=== PATIENT | female | born 1950 | race Two or more races ===

== ENCOUNTER 2017-05-22 07:56 | Inpatient (IN) | payer MEDICAID, OTHER ==
[~2017-05-22] VITALS: Ht 157.5 cm; Wt 62.4 kg
[~2017-05-22 07:56] MED LIST: LEVO25TA9
[2017-05-22 08:37] LABS: Basophils # (auto) 0 uL; Basophils % (auto) 0.2 % (0.0-2.0); Eosinophils # (auto) 0 uL; Eosinophils % (auto) 0.2 % (0.0-7.0); Hematocrit 28.8 % (36.0-46.0); Hemoglobin 9.7 g/dL (12.2-16.2); Lymphocytes # (auto) 0.6 uL; Lymphocytes % (auto) 11.7 % (10.0-50.0); Mean Corpuscular Hemoglobin 28.2 pg (28.0-32.0); Mean Corpuscular Hgb Conc. 33.7 g/dL (32.0-36.0); Mean Corpuscular Volume 83.7 fL (80.0-100.0); Monocytes # (auto) 0.2 uL; Monocytes % (auto) 3.3 % (0.0-12.0); Neutrophils # (auto) 4.5 uL; Neutrophils % (auto) 84.6 % (37.0-80.0); Nucleated Red Blood Cells % 0.1 %; Platelet Count (auto) 91 10^3/uL (140-450); Red Cell Distribution Width 16.6 % (11.8-14.3); White Blood Cell 5.4 10^3/uL (4.4-10.8)
[2017-05-22 08:51] LABS: Albumin 2.4 g/dL (3.4-5.0); BUN/Creatinine Ratio 26.1; Bilirubin, Total 0.4 mg/dL (0.2-1.0); Calcium 7.8 mg/dL (8.5-10.1); Potassium 3.9 mmol/L (3.5-5.1); Total Protein 8.1 g/dL (6.4-8.2)
[2017-05-22] MEDS ORDERED: PANTOPRAZOLE 40 MG/10 ML VIAL IV STA (08:51)
[2017-05-22 10:06] LABS: INR 1.23 (0.9-1.15); Partial Thromboplastin Time 26.9 sec (22.64-33.71); Prothrombin Time 13.4 sec (9.37-12.3)
[2017-05-22] MEDS ORDERED: LEVOTHYROXINE SODIUM 25 MCG TAB PO ONE (10:15)
[2017-05-22] MEDS ORDERED: cefTRIAXone 1GM/50ML D5W 50 ML IV ONE (10:15)
[2017-05-22] MEDS ORDERED: ONDANSETRON HCL 4 MG/2 ML VIAL IV PRN (10:30)
[2017-05-22] MEDS ORDERED: ACETAMINOPHEN 325 MG TAB PO PRN (10:30)
[2017-05-22] MEDS ORDERED: TEMAZEPAM 15 MG CAP PO PRN (10:30)
[2017-05-22] MEDS ORDERED: NITROGLYCERIN 0.4 MG SL TAB SL PRN (10:30)
[2017-05-22] MEDS ORDERED: HYDROcodone-ACET 5/325MG TAB PO PRN (10:30)
[2017-05-22] MEDS ORDERED: MORPHINE SULFATE 10 MG/ML INJ 1ML SDV IV PRN (10:30)
[2017-05-22] MEDS ORDERED: DOCUSATE SOD 100 MG CAP PO PRN (10:30)
[2017-05-22] MEDS: SODIUM CHLORIDE 0.9% 1,000 ML IV SCH ×2 (10:58→19:45)
[2017-05-22] MEDS: FAMOTIDINE (10MG/ML) 2ML VL IV ONE ×2 (11:02→11:08)
[2017-05-22 11:36] LABS: Hematocrit 29.4 % (36.0-46.0); Hemoglobin 9.6 g/dL (12.2-16.2)
[2017-05-22] MEDS ORDERED: FLUMAZENIL 0.1 MG/ML INJ 10ML MDV IV ONE (11:44)
[2017-05-22] MEDS ORDERED: LIDOCAINE VISCOUS 2% 15ML UD ONE (11:44)
[2017-05-22] MEDS ORDERED: SODIUM CHLORIDE LOCK 10 ML ONE (11:44)
[2017-05-22] MEDS ORDERED: EPINEPHrine HCL 1 MG/10 ML SYRG ONE (11:44)
[2017-05-22] MEDS ORDERED: NALOXONE HCL 0.4 MG/ML VIAL ONE (11:44)
[2017-05-22] MEDS ORDERED: MIDAZOLAM HCL 5 MG/ML-1ML VIAL ONE ×2 (11:45→11:48)
[2017-05-22] MEDS ORDERED: diphenhdrAMINE HCL 50 MG/1 ML VL ONE (11:46)
[2017-05-22] MEDS ORDERED: fentaNYL CITRATE 100 MCG/2 ML VL ONE (11:46)
[2017-05-22] MEDS: Boost Glucose Control 8 Ounces PO SCH ×2 (12:00→19:07)
[2017-05-22] MEDS: metroNIDAZOLE 500MG/100ML 100 ML IV SCH ×2 (12:07→21:34)
[2017-05-22] MEDS ORDERED: OCTREOTIDE ACETATE 100 MCG in SODIUM CHL 0.9% 50 ML IV ONE (14:00)
[2017-05-22] MEDS: OCTREOTIDE ACETATE 500 MCG in SODIUM CHL 0.9% 99 ML IV SCH (15:17)
[2017-05-22 16:20] LABS: Urine Bilirubin Negative (Negative); Urine Blood Negative /uL (Negative); Urine Color Yellow (Yellow); Urine Glucose Normal (Normal); Urine Ketone Negative (Negative); Urine Mucus FEW (None Seen); Urine Nitrite Negative (Negative); Urine RBC <1 /hpf (0 - 4); Urine Urobilinogen Normal (Negative); Urine pH 7.5 (5.0-8.0)
[2017-05-22 18:41] LABS: Hematocrit 26.1 % (36.0-46.0); Hemoglobin 8.7 g/dL (12.2-16.2)
[2017-05-22 20:15] VITALS: BP 126/68
[2017-05-22 20:30] VITALS: BP 128/68
[2017-05-22] MEDS: PANTOPRAZOLE 40 MG/10 ML VIAL IV SCH (21:34)
[2017-05-22 22:29] LABS: Hematocrit 24.3 % (36.0-46.0)
[2017-05-23] MEDS: OCTREOTIDE ACETATE 500 MCG in SODIUM CHL 0.9% 99 ML IV SCH ×2 (00:03→10:00)
[2017-05-23] MEDS: SODIUM CHLORIDE 0.9% 1,000 ML IV SCH ×2 (04:02→11:17)
[2017-05-23] MEDS: metroNIDAZOLE 500MG/100ML 100 ML IV SCH ×2 (04:04→12:00)
[2017-05-23 05:08] VITALS: BP 143/75
[2017-05-23 06:55] LABS: Basophils # (auto) 0 uL; Basophils % (auto) 0.9 % (0.0-2.0); Eosinophils # (auto) 0.1 uL; Eosinophils % (auto) 1.3 % (0.0-7.0); Hematocrit 26.3 % (36.0-46.0); Hemoglobin 8.7 g/dL (12.2-16.2); Lymphocytes % (auto) 24.8 % (10.0-50.0); Mean Corpuscular Hemoglobin 28.2 pg (28.0-32.0); Mean Corpuscular Hgb Conc. 33.2 g/dL (32.0-36.0); Mean Corpuscular Volume 85.1 fL (80.0-100.0); Monocytes # (auto) 0.2 uL; Monocytes % (auto) 4.4 % (0.0-12.0); Neutrophils # (auto) 2.7 uL; Neutrophils % (auto) 68.6 % (37.0-80.0); Nucleated Red Blood Cells % 0.5 %; Platelet Count (auto) 77 10^3/uL (140-450); Red Cell Distribution Width 17.2 % (11.8-14.3); White Blood Cell 3.9 10^3/uL (4.4-10.8)
[2017-05-23] MEDS ORDERED: LEVOTHYROXINE SODIUM 25 MCG TAB PO SCH (07:00)
[2017-05-23] MEDS ORDERED: LEVOTHYROXINE SODIUM 50 MCG TAB PO SCH (07:00)
[2017-05-23 07:33] LABS: Albumin 2.3 g/dL (3.4-5.0); BUN/Creatinine Ratio 27.4; Bilirubin, Total 0.5 mg/dL (0.2-1.0); Calcium 7.6 mg/dL (8.5-10.1); Total Protein 7.7 g/dL (6.4-8.2)
[2017-05-23] MEDS: Boost Glucose Control 8 Ounces PO SCH ×2 (08:00→12:00)
[2017-05-23 08:30] VITALS: BP 142/83
[2017-05-23] MEDS ORDERED: cefTRIAXone 1GM/50ML D5W 50 ML IV SCH (09:00)
[2017-05-23] MEDS ORDERED: MULTIPLE VITAMIN TAB PO SCH (10:00)
[2017-05-23] MEDS ORDERED: FAMOTIDINE (10MG/ML) 2ML VL IV SCH (10:00)
[2017-05-23] MEDS ORDERED: PANTOPRAZOLE 40 MG/10 ML VIAL IV SCH (10:00)
[2017-05-23] MEDS: PANTOPRAZOLE 40 MG/10 ML VIAL IV SCH (10:33)
[2017-05-23 11:23] VITALS: BP 142/83
[2017-05-23 14:00] VITALS: BP 131/79
[2017-05-23] MEDS: PROPRANOLOL HCL 20 MG TAB PO SCH ×2 (14:27→14:31)
== END 2017-05-23 15:30 | disposition home or self-care (01) | DRG 242 ==
LOC: EDBD 07:56 → ER 07:56 → TELE 07:57 → TELE-WESTW 20:18
PROVIDERS: ADMIT Internal Medicine; ATTEND Internal Medicine
PROC: 06L38CZ Occlusion of Esophageal Vein with Extraluminal Device, Via Natural or Artificial Opening Endoscopic (ICD-10-PCS; principal; 2017-05-22 13:32)
DX: I85.11 Secondary esophageal varices with bleeding (principal); R65.10 Systemic inflammatory response syndrome (SIRS) of non-infectious origin without acute organ dysfunction; E44.0 Moderate protein-calorie malnutrition; E11.65 Type 2 diabetes mellitus with hyperglycemia; E83.51 Hypocalcemia; K74.60 Unspecified cirrhosis of liver; I85.01 Esophageal varices with bleeding; D50.0 Iron deficiency anemia secondary to blood loss (chronic); E03.9 Hypothyroidism, unspecified; K75.81 Nonalcoholic steatohepatitis (NASH); Z79.899 Other long term (current) drug therapy; Z82.3 Family history of stroke; Z83.3 Family history of diabetes mellitus; Z68.25 Body mass index [BMI] 25.0-25.9, adult; K29.70 Gastritis, unspecified, without bleeding
CPT/HCPCS: 36415; 71020; 74176; 76705; 80053; 81001; 82140; 83036; 83690; 85014; 85018; 85025; 85610; 85730; 87040; 94761; 96365; 96367; 96375; C9113; J0696; J2250; J3490

== ENCOUNTER 2018-10-29 13:29 | Inpatient (IN) | payer MEDICARE, MEDICAID ==
[~2018-10-29] VITALS: Ht 154.9 cm; Wt 68.5 kg
[2018-10-29 15:57] LABS: Albumin 3.1 g/dL (3.4-5.0); Potassium 3.9 mmol/L (3.5-5.1)
[2018-10-29 16:02] LABS: BUN/Creatinine Ratio 18.9; Bilirubin, Total 1.4 mg/dL (0.2-1.0); Calcium 8.4 mg/dL (8.5-10.1); Total Protein 8.2 g/dL (6.4-8.2)
[2018-10-29 16:07] LABS: Hematocrit 37.4 % (36.0-46.0); Hemoglobin 12.9 g/dL (12.2-16.2); Mean Corpuscular Hgb Conc. 34.6 g/dL (32.0-36.0); Platelet Count (auto) 53 10^3/uL (140-450); Red Cell Distribution Width 17.7 % (11.8-14.3)
[2018-10-29 16:07] LABS: Urine Bacteria NONE SEEN /hpf (None Seen); Urine Blood Negative /uL (Negative); Urine Specific Gravity 1.006 (1.001-1.035); Urine WBC 1 /hpf (0 - 5)
[2018-10-29 16:11] LABS: Mean Corpuscular Hemoglobin 37.7 pg (28.0-32.0); Mean Corpuscular Volume 109.1 fL (80.0-100.0); Red Blood Cells 3.43 10^6/uL (4.0-5.20)
[2018-10-29 16:13] LABS: White Blood Cell 1.8 10^3/uL (4.4-10.8)
[2018-10-29 16:15] LABS: Band Neutrophils % (manual) 0; Basophils % (manual) 0 (0.0-2.0); Blast Cells 0; Metamyelocytes % 0; Myelocytes % 0; Promyelocytes % 0; Reactive Lymphocytes 0
[2018-10-29 16:22] LABS: INR 1.19 (0.9-1.15); Partial Thromboplastin Time 32.7 sec (23.78-33.04); Prothrombin Time 12.6 sec (9.27-12.13)
[2018-10-29 19:03] LABS: Eosinophils % (manual) 4 (0-7); Lymphocytes % (manual) 41 (10.0-50.0); Monocytes % (manual) 9 (0-12)
[2018-10-29] MEDS ORDERED: MORPHINE SULF INJ 2 MG/ML SYRINGE 1ML IV PRN (19:30)
[2018-10-29] MEDS ORDERED: NITROGLYCERIN 0.4 MG SL TAB SL PRN (19:30)
[2018-10-29 22:00] VITALS: BP 124/69
[2018-10-29] MEDS: PROPRANOLOL HCL 20 MG TAB PO SCH (23:17)
[2018-10-30 05:00] VITALS: BP_SYST 105; BP_SYST 95; BP_DIAS 52; BP_DIAS 55
[2018-10-30 06:03] LABS: Basophils # (auto) 0 uL; Eosinophils # (auto) 0.1 uL; Lymphocytes # (auto) 0.6 uL; Mean Corpuscular Volume 107.9 fL (80.0-100.0); Monocytes # (auto) 0.1 uL; Neutrophils # (auto) 0.5 uL; Nucleated Red Blood Cells % 0.8 %
[2018-10-30 06:05] LABS: Basophils % (auto) 1.2 % (0.0-2.0); Eosinophils % (auto) 4.7 % (0.0-7.0); Hematocrit 33.6 % (36.0-46.0); Hemoglobin 11.8 g/dL (12.2-16.2); Lymphocytes % (auto) 44.8 % (10.0-50.0); Mean Corpuscular Hemoglobin 37.9 pg (28.0-32.0); Mean Corpuscular Hgb Conc. 35.1 g/dL (32.0-36.0); Neutrophils % (auto) 39.3 % (37.0-80.0); Platelet Count (auto) 48 10^3/uL (140-450); Red Blood Cells 3.11 10^6/uL (4.0-5.20); Red Cell Distribution Width 17.9 % (11.8-14.3)
[2018-10-30 06:11] LABS: White Blood Cell 1.2 10^3/uL (4.4-10.8)
[2018-10-30 06:13] LABS: Albumin 2.7 g/dL (3.4-5.0); Potassium 3.9 mmol/L (3.5-5.1)
[2018-10-30 06:18] LABS: BUN/Creatinine Ratio 18.8; Bilirubin, Total 0.8 mg/dL (0.2-1.0); Calcium 7.8 mg/dL (8.5-10.1); Total Protein 7.3 g/dL (6.4-8.2)
[2018-10-30] MEDS ORDERED: LEVO112T4 PO (07:55)
[2018-10-30] MEDS ORDERED: LEVOTHYROXINE SODIUM 112 MCG TAB PO SCH (08:00)
[2018-10-30 09:00] VITALS: BP 104/63
[2018-10-30] MEDS: PROPRANOLOL HCL 20 MG TAB PO SCH (10:00)
[2018-10-30] MEDS ORDERED: SPIRONOLACTONE 25 MG TAB PO SCH (10:00)
[2018-10-30] MEDS ORDERED: AZAT75TA PO (11:58)
[2018-10-30 13:00] VITALS: BP 111/63
== END 2018-10-30 15:10 | disposition home or self-care (01) | DRG 433 ==
LOC: ER 13:34 → TELE 19:25 → TELE-EAST 21:16
PROVIDERS: ADMIT Nurse Practitioner Acute Care; ATTEND Family Medicine
DX: K74.60 Unspecified cirrhosis of liver (principal); E44.0 Moderate protein-calorie malnutrition; K76.6 Portal hypertension; D69.6 Thrombocytopenia, unspecified; D64.9 Anemia, unspecified; E03.9 Hypothyroidism, unspecified; N93.9 Abnormal uterine and vaginal bleeding, unspecified; D72.819 Decreased white blood cell count, unspecified; I10 Essential (primary) hypertension; M25.551 Pain in right hip; M16.11 Unilateral primary osteoarthritis, right hip; M19.90 Unspecified osteoarthritis, unspecified site; Z83.3 Family history of diabetes mellitus; Z68.28 Body mass index [BMI] 28.0-28.9, adult
CPT/HCPCS: 36415; 71045; 73502; 74176; 80053; 81001; 82607; 83036; 83690; 84443; 85007; 85025; 85027; 85610; 85730; 86038; G0378